=== PATIENT | male | born 1955 | race Caucasian/White ===

== ENCOUNTER 2016-12-13 03:42 | Emergency (ER) | payer BC ==
[2016-12-13 03:46] VITALS: BP 141/97; PULSE 79; TEMP 97.5; BMI 43.2
[2016-12-13] MEDS ORDERED: ONDANSETRON *ODT* 4 MG TABLET SL ONE (03:57)
[2016-12-13] MEDS ORDERED: MECLIZINE HCL 25 MG TABLET (FP) PO ONE (03:57)
[2016-12-13] MEDS ORDERED: ONDANSETRON *ODT* 4 MG TABLET ONE (03:59)
[2016-12-13] MEDS ORDERED: MECLIZINE HCL 25 MG TABLET (FP) ONE (03:59)
--- NOTE | 2016-12-13 03:59 | PDOC ---
History of Present Illness - General Chief Complaint: Lightheaded Stated Complaint: DIZZINESS Time Seen by Provider: 12/13/16 03:54 History Source: Patient Exam Limitations: No Limitations - History of Present Illness Initial Comments: 12/13/16 03:56 This is a 61-year-old male who comes in complaining of a sensation that he is spinning. Patient said he woke up with the sensation. He denies any history of similar problems in the past. Patient says it is associated with some nausea. He denies any headache, neck pain,, chest pain, shortness of breath, abdominal pain, fevers or chills. He denies any neck stiffness. He denies any ringing or buzzing sensation in his ears. He denies any recent history of trauma. PAST MEDICAL HISTORY: obesity PAST SURGICAL HISTORY: no significant history FAMILY HISTORY: no pertinant history SOCIAL HISTORY: Pt lives with family and is employed. MEDICATIONS: reviewed ALLERGIES: As per nursing notes Review of Systems General: No fevers or chills, no weakness, no weight loss HEENT: No change in vision. No sore throat,. No ear pain CardioVascular: No chest pain or shortness of breath Respiratory:No cough, or wheezing. Gastrointestinal: no nausea, vomitting, diarrhea or constipation, No rectal bleeding Genitourinary: No dysuria, hematuria, or frequency Musculoskeletal: No joint or muscle pain or swelling Neurologic: No headache, vertigo, dizziness or loss of consciousness, vertigo Psychiatric: nor depression Skin: No rashes or easy bruising Endocrine: no increased thirst or abnormal weight change Allergic: no skin or latex allergy All other systems reviewed and normal Exam: General: Well-nourished well-developed individual, no acute distress HEENT: Throat: Normal, tonsils normal, no erythema or exudate Neck: Supple, no meningeal signs, no lymphadenopathy Eyes::Pupils equal reactive and round, extraocular motion intact Chest: Nontender to palpation Cardiac: S1-S2 normal, regular rate and rhythm, no murmurs rubs or gallops Respiratory: Lungs clear to auscultation bilateral Abdomen: Soft, nondistended, normal bowel sounds, nontender to palpation diffusely Extremities: Warm, dry, no cyanosis, clubbing, or edema Skin: No rashes Neuro: Alert and oriented x3, nonfocal exam, grossly intact, normal gait Psych: Normal mood and affect Reevaluation post medication. Patient symptoms improved. Head CT no acute pathology Patient discharged home with prescriptions for meclizine and Zofran. Patient discharged home with his family. Past History - Past Medical History Allergies/Adverse Reactions: Allergies Allergy/AdvReac Type Severity Reaction Status Date / Time Penicillins Allergy Verified 12/13/16 03:57 Home Medications: Ambulatory Orders Meclizine HCl [Antivert -] 25 mg PO QID #28 tablet 12/13/16 Ondansetron [Zofran Odt -] 4 mg SL TID #21 od.tablet 12/13/16 Diabetes: Yes HTN: Yes - Psycho/Social/Smoking Cessation Hx Anxiety: No Suicidal Ideation: No Smoking History: Never smoked Hx Alcohol Use: (occasionally / weekends) *Physical Exam - Vital Signs Last Vital Signs Temp Pulse Resp BP Pulse Ox 97.5 F L 79 20 141/97 94 L 12/13/16 03:44 12/13/16 03:44 12/13/16 03:44 12/13/16 03:44 12/13/16 03:44 *DC/Admit/Observation/Transfer Diagnosis at time of Disposition: Vertigo - Discharge Dispostion Disposition: HOME Condition at time of disposition: Stable Admit: No - Prescriptions Prescriptions: Meclizine HCl [Antivert -] 25 mg PO QID #28 tablet Ondansetron [Zofran Odt -] 4 mg SL TID #21 od.tablet - Referrals Referrals: Ever Pizano MD [Primary Care Provider] - - Patient Instructions Printed Discharge Instructions: Vertigo (Alternative Therapy) Additional Instructions: For the spinning sensation/vertigo take meclizine 1 tablet as often as every 4- 6 hours if needed. For nausea take Zofran 1 tablet as often as every 8-12 hours if needed. Return to the emergency department immediately with ANY new, persistent or worsening symptoms. Continue any medications as previously prescribed by your physician. You should follow up with your primary doctor as soon as possible regarding today's emergency department visit. . Please make sure your doctor reviews the results of your emergency evaluation. Thank you for coming to the Emergency Department today for your care. It was a pleasure to see you today. Please note that your evaluation is INCOMPLETE until you follow-up with your doctor.
== END 2016-12-13 05:37 | disposition home or self-care (01) ==
LOC: FER 03:42
DX: R42 Dizziness and giddiness (principal); E11.9 Type 2 diabetes mellitus without complications; I10 Essential (primary) hypertension
CPT/HCPCS: 70450-TC; 99281-25

== ENCOUNTER 2019-03-19 14:40 | Emergency (ER) | payer BC, OTHER ==
--- NOTE | 2019-03-19 14:43 | PDOC ---
History of Present Illness - General Chief Complaint: Injury Stated Complaint: LEFT THUMB LACERATION Time Seen by Provider: 03/19/19 14:43 History Source: Patient - History of Present Illness Initial Comments: 03/19/19 16:07 Pt presents to the ED complaining of avulsion of the tip of his L thumb. States that he cut his thumb with a saw while cutting wood. Denies other injuries. uncertain of last tetanus. Past History - Past Medical History Allergies/Adverse Reactions: Allergies Allergy/AdvReac Type Severity Reaction Status Date / Time Penicillins Allergy Verified 03/19/19 14:42 Home Medications: Ambulatory Orders Canagliflozin [Invokana] 100 mg PO ASDIR 03/19/19 Dulaglutide [Trulicity] mg SQ WEEKLY 03/19/19 Metformin HCl [Glucophage] 500 mg PO DAILY 03/19/19 Telmisartan/Hydrochlorothiazid [Telmisartan-Hctz 80-12.5 mg Tb] 1 each PO DAILY 03/19/19 Diabetes: Yes HTN: Yes - Suicide/Smoking/Psychosocial Hx Smoking History: Never smoked Hx Alcohol Use: (occasionally / weekends) Review of Systems - Review of Systems Able to Perform ROS?: Yes Comments:: 03/19/19 16:11 Skin: + thumb avulsion Is the patient limited Occitan proficient: No *Physical Exam - Physical Exam Comments: 03/19/19 16:11 Gen: alert, NAD skin: + small avulsion to the L thumb, without active bleeding. intact cap refill. Medical Decision Making - Medical Decision Making 03/19/19 16:13 Pt presents to the ED with avulsion to the L thumb. Xrays checked to evaluate for involvement of the bone, and are negative. Tetanus given. Digit digital blocked and irrigated with tap water for 5 minutes. Wound dressed with xeroform. Will discharge home with instructions to return to the ED for worsening symptoms. *DC/Admit/Observation/Transfer Diagnosis at time of Disposition: Fingertip avulsion Qualifiers: Encounter type: initial encounter Qualified Code(s): S61.209A - Unspecified open wound of unspecified finger without damage to nail, initial encounter - Discharge Dispostion Disposition: HOME Condition at time of disposition: Good Decision to Admit order: No - Referrals Referrals: Ever Pizano MD [Primary Care Provider] - Tomy Burris MD [Staff Physician] - Lars López MD [Staff Physician] - - Patient Instructions Printed Discharge Instructions: DI for Avulsion Laceration (Not Requiring Sutures) Additional Instructions: you came to the ED because the tip of your thumb was cut off. Your injury did not involve the bone. You should keep the wound clean and dry for 24-48 hours. After that, you can gently wash the wound with soap and water. You should return to the ED for fever, nausea and vomiting, severe bleeding from the wound , pus from the wound, red hot swollen tender thumb or hand. Call Dr. Burris or another hand surgeon for follow up. - Post Discharge Activity Forms/Work/School Notes: Back to Work
[2019-03-19] MEDS ORDERED: LIDOCAINE HCL 2% (50ML VIAL) INF ONE (14:44)
[2019-03-19 15:02] VITALS: BP 111/70; PULSE 98; TEMP 98.5; BMI 41.5
[2019-03-19] MEDS ORDERED: LIDOCAINE HCL 2% (20ML MULTI-DOSE VIAL) NR ONE (15:14)
[2019-03-19] MEDS ORDERED: DIPHTH,PERTUSS(ACELL),TET 0.5 ML DISP.SYRIN IM ONE ×2 (15:52→15:53)
== END 2019-03-19 16:00 | disposition home or self-care (01) ==
LOC: FER 14:40
PROC: 3E0234Z Introduction of Serum, Toxoid and Vaccine into Muscle, Percutaneous Approach (ICD-10-PCS; principal; 2019-03-19)
PROC: 0HQGXZZ Repair Left Hand Skin, External Approach (ICD-10-PCS; 2019-03-19)
DX: S61.209A Unspecified open wound of unspecified finger without damage to nail, initial encounter (principal); W27.8XXA Contact with other nonpowered hand tool, initial encounter; Y93.89 Activity, other specified; Y92.89 Other specified places as the place of occurrence of the external cause; E11.9 Type 2 diabetes mellitus without complications; I10 Essential (primary) hypertension
CPT/HCPCS: 73130-TC-LT-FY; 90715; 99283-25